=== PATIENT | female | born 1975 | race Caucasian/White ===

== ENCOUNTER 2016-11-10 12:35 | Day surgery (SDC) | payer BC ==
[~2016-11-10] VITALS: Ht 175.3 cm; Wt 151.5 kg
--- NOTE | 2016-11-10 09:39 | MH ---
cc: JACOB SORIANOJulia DATE OF ADMISSION: 11/10/2016 ADMITTING DIAGNOSIS Menorrhagia with anemia, vulvar lesion. HISTORY OF PRESENT ILLNESS A 40-year-old single white female para 0, reported to about 9 years having most no periods except for an occasional one produced by progesterone withdrawal. Over the last 2 years she has been bleeding almost continuously often very heavy. She had an ER visit in [place] in 2015 with extremely low blood count and that required no transfusion. Saw a doctor in [place], on 10/12/16, was given Provera 10 milligrams p.o. b.i.d. which she has taken since that time which has not helped. An ultrasound at [facility] on 09/30/2016 which showed uterus that measured 9.2 cm, endometrium of 20 mm and ovary appeared normal, left could not be seen. She was seen by me for official evaluation on 11/04/2016. PAST MEDICAL HISTORY Her past medical history in 2004 she had a right ACL reconstruction. MEDICATIONS Medications include: 1. Levothyroxine 125 micrograms daily. 2. Lasix 20 milligrams p.o. p.r.n. ALLERGIES None. ILLNESSES History of hypothyroid 2017. TRANSFUSIONS None. OB HISTORY None. SOCIAL HISTORY She works for road [employer], is single, has same sex partner. Alcohol, tobacco and drugs are none. FAMILY HISTORY Noncontributory. PHYSICAL EXAMINATION GENERAL: Shows a morbidly obese white female. VITAL SIGNS: Stable. Height 5'9" inches, weight 347 pounds. HEENT: Exam is normal. CHEST: Her chest is clear. HEART: Regular rate. BREASTS: The breasts are symmetrical. ABDOMEN: The abdomen is obese, benign. PELVIC EXAMINATION: The vulva showed 3 cm growth on the right labia minora. Vagina is normal. Cervix was normal. Uterus feels normal size, shape. Adnexa nonpalpable. ASSESSMENT As above. She is now admitted for hysteroscopy, D&C and a partial molectomy to excise the lesion. Her hemoglobin was 6.9 on 11/05/2016 with microcytic indices. If unstable she will receive transfusion and she is aware of the risks and benefit of transfusion. Also aware of pending pathology, she may require additional surgery. The risks, benefits, complications are explained and accepted. MD KATIE Wolf /8:58 PM /9:36 AM EVELIA
[~2016-11-10 12:35] MED LIST: FURO40TA PO; LEVO125T4 PO; MEDR10TA7 PO; NEOSTIGMINE METHYLSULFATE 10 MG/10 ML VIAL IV PUSH ONE; NORMOSOL R INJ 1,000 ML IV ONE; ONDANSETRON HCL 4 MG/2 ML VIAL IV PUSH ONE; PROPOFOL 200 MG/20 ML AMP IV ONE
[2016-11-10 12:50] VITALS: BP 142/70; PULSE 78; RESP 16; TEMP 97.9; O2SAT 98
[2016-11-10] MEDS ORDERED: LACTATED RINGER'S 1000 ML IV SCH (13:15)
[2016-11-10] MEDS ORDERED: ceFAZolin 2 GM PREMIX 50 ML IV SCH (13:15)
[2016-11-10] MEDS ORDERED: SODIUM CHLORID 0.9% 500 ML IV SCH (13:15)
[2016-11-10] MEDS ORDERED: INSULIN HUMAN REGULAR 1,000 UNITS/10 ML VIAL SQ PRN (13:15)
[2016-11-10] MEDS ORDERED: ACETAMINOPHEN 1000 MG/100 ML VIAL IV SCH (13:15)
[2016-11-10] MEDS ORDERED: METOPROLOL TARTRATE 25 MG TAB PO PRN (13:15)
[2016-11-10 18:19] VITALS: PULSE 71
[2016-11-10 18:20] VITALS: BP 190/85; PULSE 76; RESP 13; TEMP 98.4; O2SAT 99
[2016-11-10 18:35] VITALS: BP 146/76; PULSE 66; RESP 12; TEMP 98.6; O2SAT 99
[2016-11-10] MEDS ORDERED: SODIUM CHLOR 0.9% 250 ML INJ 250 ML ONE (19:07)
[2016-11-10] MEDS ORDERED: BUPIVACAINE/EPINEPHRINE 0.5% 50 ML VIAL INFIL ONE (19:45)
[2016-11-10] MEDS ORDERED: BACITRACIN TOP OINT 15 GM TUBE ONE (20:07)
[2016-11-10 20:20] VITALS: TEMP 98
[2016-11-10] MEDS ORDERED: DO NOT ADM ANY ANTICOAGULANT DRUGS XX PRN (20:30)
[2016-11-10] MEDS ORDERED: fentaNYL CITRATE 250 MCG/5 ML AMP ONE (20:43)
[2016-11-10 21:15] VITALS: BP 148/72; PULSE 65; RESP 16; O2SAT 100
[2016-11-10] MEDS ORDERED: METOCLOPRAMIDE HCL 10 MG/2 ML VIAL IV PRN (21:15)
[2016-11-10] MEDS ORDERED: SODIUM CHLORIDE FLUSH PRN IVF (21:15)
[2016-11-10] MEDS ORDERED: oxyCODONE/ACETAMINOPHEN 5 MG/325 MG TAB PO PRN (21:15)
[2016-11-10] MEDS ORDERED: MUPI2%T TOPICAL (21:30)
[2016-11-10] MEDS ORDERED: PERC5TAB12 PO (21:30)
[2016-11-11] MEDS ORDERED: SODIUM CHLORIDE FLUSH BID IVF SCH (09:00)
--- NOTE | 2016-11-11 14:07 | EKG ---
Date Performed: 11/10/2016 Time Performed: 13:10:43 PTAGE: 40 years EKG: Sinus rhythm NORMAL ECG NO PREVIOUS TRACING DOCTOR: Geovanni Harper Interpretating Date/Time 11/11/2016 13:59:05
--- NOTE | 2016-11-13 13:29 | MP ---
cc: JACOB SORIANO M.D. DATE OF SURGERY: 11/10/2016. 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 OPERATIVE PROCEDURE PERFORMED: Hysteroscopy, D&C and partial vulvectomy. SURGEON: Jacob Soriano MD. ANESTHESIA General ET and Marcaine plus epinephrine about 20 mL total. ESTIMATED BLOOD LOSS FOR THE PROCEDURE: About 50 cc. FLUIDS: 0.5 liter crystalloid. BLOOD REPLACEMENT: Two units pre- and postop total. DESCRIPTION OF THE PROCEDURE IN DETAIL / OBJECTIVE FINDINGS: Following the induction of adequate general endotracheal anesthesia, the patient was prepped and draped supine on the operating table in the dorsal lithotomy position in the usual sterile fashion with the bladder being drained via in and out catheterization. The vulva was notable for a 3 cm exophytic lesion on the left labia minora and a 1 cm one on the right labia minora. A heavy weighted speculum was placed in the posterior fornix of the vagina. The anterior lip of the cervix with a single-tooth tenaculum and the cervix and uterus sounded to 9 cm. The cervix was then dilated to a #18 Hanks dilator. The hysteroscope was passed with normal endocervix with very thickened endometrium. The scope was withdrawn. Endocervical Curettings were obtained with a small serrated curette, copious endometrium with a medium sharp curette. The vaginal instruments were removed. The left labial lesion was infiltrated with about 10 mL of Marcaine 0.5% with epinephrine and then an elliptical incision was made to excise the mass. The wound was cauterized with Bovie for good hemostasis and the wound edges reapproximated with 3-0 Vicryl interrupted. On the right side injection was done with 5 mL of Marcaine plus epinephrine and the lesion excised with a 1.5 cm ellipse and closed with 3-0 Vicryl after good hemostasis with the Bovie. Re-inspection of the cervix revealed no bleeding. Bacitracin was applied. The patient was taken out of the stirrups. She was awakened and taken to the recovery room in good condition. MD NIGEL Wolf/LEYLA /8:08 PM /1:16 PM
[2017-01-05] MEDS ORDERED: FERR65TA PO (11:31)
== END 2016-11-10 21:50 | disposition home or self-care (01) ==
LOC: HSDC 12:35
PROVIDERS: ATTEND Obstetrics & Gynecology
DX: N92.0 Excessive and frequent menstruation with regular cycle (principal); N85.01 Benign endometrial hyperplasia; N84.3 Polyp of vulva; D50.0 Iron deficiency anemia secondary to blood loss (chronic); I10 Essential (primary) hypertension
CPT/HCPCS: 00906; 36430; 56620; 58558; 86850; 86900; 86901; 86920; 88304; 88305; 93005; J0131; J0690; J2405; J2710; J3010; J7050; J7120; P9016

== ENCOUNTER 2017-01-06 05:28 | Observation (INO) | payer BC ==
[~2017-01-06] VITALS: Ht 175.3 cm; Wt 153.7 kg
[~2017-01-06 05:28] MED LIST changes: +FERR65TA PO; -NEOSTIGMINE METHYLSULFATE 10 MG/10 ML VIAL IV PUSH ONE; -NORMOSOL R INJ 1,000 ML IV ONE; -ONDANSETRON HCL 4 MG/2 ML VIAL IV PUSH ONE; -PROPOFOL 200 MG/20 ML AMP IV ONE
[2017-01-06] MEDS ORDERED: POVIDONE IODINE 5% (ANTISEPSIS KIT) 4 APPLICATIONS EACH NARE PRN (06:00)
[2017-01-06] MEDS ORDERED: METOPROLOL TARTRATE 25 MG TAB PO PRN (06:00)
[2017-01-06] MEDS ORDERED: ceFAZolin 2 GM PREMIX 50 ML IV SCH (06:00)
[2017-01-06] MEDS ORDERED: CHLORHEXIDINE GLUCONATE 2 % 1 PACK (2 CLOTHS) TOPICAL PRN (06:00)
[2017-01-06] MEDS ORDERED: INSULIN HUMAN REGULAR 1,000 UNITS/10 ML VIAL SQ PRN (06:00)
[2017-01-06] MEDS ORDERED: SODIUM CHLORID 0.9% 500 ML IV PRN (06:00)
[2017-01-06] MEDS ORDERED: LACTATED RINGER'S 1000 ML IV PRN (06:00)
[2017-01-06] MEDS ORDERED: HEPARIN SODIUM - SQ 10,000 UNITS/ML VIAL SQ SCH (06:00)
[2017-01-06 06:22] VITALS: BP 161/74; PULSE 73; RESP 18; TEMP 97.9; O2SAT 96
[2017-01-06] MEDS ORDERED: LIDOCAINE 1%/EPINEPHrine 1:100,000 SOLN 20 ML VIAL ONE (07:12)
[2017-01-06] MEDS ORDERED: fentaNYL CITRATE 250 MCG/5 ML AMP ONE (07:32)
[2017-01-06] MEDS ORDERED: DEXAMETHASONE SOD PHOS 20 MG/5 ML VIAL ONE (07:32)
[2017-01-06] MEDS ORDERED: FAMOTIDINE 20 MG/2 ML VIAL ONE (07:33)
[2017-01-06] MEDS ORDERED: ACETAMINOPHEN 1000 MG/100 ML VIAL IV ONE (08:04)
[2017-01-06] MEDS ORDERED: HYDROmorphone HCL PF 2 MG/ML VIAL ONE (08:04)
[2017-01-06] MEDS ORDERED: METHYLENE BLUE 10 MG/ML VIAL OTHER ONE (10:24)
[2017-01-06] MEDS ORDERED: ceFAZolin INJ 1,000 MG VIAL IV ONE (10:38)
[2017-01-06] MEDS ORDERED: SUGAMMADEX SODIUM 200 MG/2 ML VIAL IV PUSH ONE ×2 (11:06)
[2017-01-06] MEDS ORDERED: SODIUM CHLORIDE 0.9% FLUSH 10 ML FLUSH IV FLUSH PRN (11:30)
[2017-01-06] MEDS ORDERED: oxyCODONE/ACETAMINOPHEN 5 MG/325 MG TAB PO PRN ×2 (11:30)
[2017-01-06] MEDS ORDERED: ONDANSETRON HCL 4 MG/2 ML VIAL IVP PRN (11:30)
[2017-01-06] MEDS ORDERED: LORazepam 0.5 MG TAB PO PRN (11:30)
[2017-01-06] MEDS ORDERED: HYDROmorphone HCL PF 1 MG/ML VIAL IVP PRN (11:30)
[2017-01-06] MEDS ORDERED: diphenhydrAMINE HCL 25 MG CAP PO PRN (11:30)
[2017-01-06] MEDS ORDERED: PHENYLEPH/NS 1000 MCG/10 ML SYR IV ONE (12:00)
[2017-01-06] MEDS ORDERED: ePHEDrine/NS 25 MG/5 ML SYR IV ONE (12:00)
[2017-01-06] MEDS ORDERED: LACTATED RINGER'S 1000 ML INJ 1,000 ML IV ONE (12:00)
[2017-01-06] MEDS ORDERED: ONDANSETRON HCL 4 MG/2 ML VIAL IV PUSH ONE (12:00)
[2017-01-06] MEDS ORDERED: PROPOFOL 200 MG/20 ML AMP IV ONE (12:00)
[2017-01-06] MEDS ORDERED: DO NOT ADM ANY ANTICOAGULANT DRUGS PRN (12:00)
[2017-01-06] MEDS ORDERED: NEOSTIGMINE 3 MG/3 ML SYR IV ONE (12:00)
[2017-01-06] MEDS ORDERED: SODIUM CHLOR 0.9% 1000 ML INJ 1,000 ML IV ONE (12:00)
[2017-01-06] MEDS: KETOROLAC TROMETHAMINE 30 MG/ML (IVP) VIAL IVP SCH ×3 (12:20→23:35)
[2017-01-06] MEDS: D5-1/2 NS + KCL 20 MEQ INJ 1,000 ML IV SCH ×2 (12:22→23:35)
[2017-01-06 13:15] VITALS: BP 156/77; PULSE 78; RESP 21; TEMP 96.6; O2SAT 92
[2017-01-06 16:13] VITALS: BP 152/77; PULSE 79; RESP 20; TEMP 97.8; O2SAT 95
--- NOTE | 2017-01-06 16:42 | PD.ONC.PN ---
Subjective Subjective Remarks post op note pt awake and alert no complaints of pain or n/v states that both of her hands feel a little numb Objective Data Date Time Temp Pulse Resp B/P Pulse Ox O2 Delivery O2 Flow Rate FiO2 01/06/17 16:13 97.8 79 20 152/77 95 01/06/17 13:15 96.6 78 21 156/77 92 01/06/17 12:45 76 16 175/83 95 Nasal Cannula 3 01/06/17 12:30 79 16 167/93 94 Nasal Cannula 3 01/06/17 12:15 77 16 166/96 94 Nasal Cannula 3 01/06/17 12:00 79 16 159/87 96 Nasal Cannula 4 01/06/17 11:46 98.4 80 16 159/85 100 Simple Mask 10 01/06/17 06:22 97.9 73 18 161/74 96 01/06/17 01/06/17 01/06/17 07:00 15:00 23:00 Intake Total 2250 ml Output Total 1150 ml Balance 1100 ml Laboratory Results Laboratory Tests Test 01/06/17 06:10 Blood Type A POSITIVE Antibody Screen NEGATIVE Administered Medications Medications (Trade) Dose Ordered Sig/Nayan Route PRN Reason Start Time Stop Time Status Last Admin Dose Admin Potassium Chloride/Dextrose/ Sod Cl (D5-1/2 NS + KCl 20 Meq Inj) 1,000 ml @ 100 mls/hr Q10H IV 01/06/17 13:00 01/06/17 12:22 Ketorolac Tromethamine (Toradol Inj) 30 mg Q6H IVP 01/06/17 11:30 01/07/17 05:31 01/06/17 12:20 Objective Remarks GENERAL: Well-nourished, well-developed patient. SKIN: Warm and dry. HEAD: Normocephalic. EYES: No scleral icterus. No injection or drainage. CARDIOVASCULAR: Regular rate and rhythm without murmurs. RESPIRATORY: Breath sounds equal bilaterally. No accessory muscle use. GASTROINTESTINAL: Abdomen soft, non-tender, nondistended. SS are c/d/i EXTREMITIES: TEDs and SCDs MUSCULOSKELETAL: Adequate muscle tone. NEUROLOGICAL: No obvious focal deficit. Awake, alert, and oriented x3. bilateral UE strength 5/5, shoulder shrug 5/5 equal PSYCHIATRIC: Appropriate mood and affect; insight and judgment normal. Assessment/Plan Problem List: (1) Post-operative state Status: Acute Plan: s/p RA lap hyst with bso ADAT OOB to chair IS to bedside and instructions given for use pain meds per EMR anticipate d/c home in next 24hours Attending Statement Dr. Garcia is in agreement with this plan of care. Inna Villa January 06, 2017 16:42
[2017-01-06 20:00] VITALS: BP 144/67; PULSE 78; RESP 18; TEMP 99; O2SAT 96
[2017-01-06 21:02] LABS: MEAN CORPUSCULAR HGB CONC 29.1 % (32.0-36.0)
[2017-01-06] MEDS: SODIUM CHLORIDE 0.9% FLUSH 10 ML FLUSH IV FLUSH SCH (22:30)
[2017-01-07] VITALS: BP 152/72; PULSE 65; RESP 18; TEMP 98.2; O2SAT 98
[2017-01-07 04:00] VITALS: BP 154/75; PULSE 93; RESP 17; TEMP 97.1; O2SAT 95
[2017-01-07] MEDS: KETOROLAC TROMETHAMINE 30 MG/ML (IVP) VIAL IVP SCH (05:32)
[2017-01-07] MEDS ORDERED: LEVOTHYROXINE SODIUM 125 MCG TAB PO SCH (06:00)
[2017-01-07] MEDS ORDERED: OXYC1TAB63 PO (07:14)
[2017-01-07 07:31] LABS: AUTOMATED NEUTROPHIL # 8.2 TH/MM3 (1.8-7.7); BASOPHIL % 0.4 % (0.0-2.0); EOSINOPHIL % 0.3 % (0.0-4.0); HEMATOCRIT 27.7 % (35.0-46.0); LYMPH % 14.7 % (9.0-44.0); LYMPHOCYTE # 1.5 TH/MM3 (1.0-4.8); MEAN CELL VOLUME 61.3 FL (80.0-100.0); MEAN CORPUSCULAR HEMOGLOBIN 17.8 PG (27.0-34.0); MONO % 4.3 % (0.0-8.0); NEUT % 80.3 % (16.0-70.0); PLATELET COUNT 245 TH/MM3 (150-450); RED BLOOD COUNT 4.52 MIL/MM3 (4.00-5.30); RED CELL DISTRIBUTION WIDTH 23.5 % (11.6-17.2); WHITE BLOOD COUNT 10.2 TH/MM3 (4.0-11.0)
[2017-01-07 07:33] LABS: HEMO FLAGS AUTO DIFF
[2017-01-07] MEDS: SODIUM CHLORIDE 0.9% FLUSH 10 ML FLUSH IV FLUSH SCH (07:54)
[2017-01-07 08:07] LABS: BICARBONATE 28.2 MEQ/L (21.0-32.0); POTASSIUM 3.4 MEQ/L (3.5-5.1)
[2017-01-07 08:20] LABS: SCAN/DIFF AUTO DIFF CONFIRMED; TEARDROP RBCS 1+ (NORMAL)
[2017-01-07 08:36] VITALS: BP 160/75; PULSE 70; RESP 21; TEMP 97.7; O2SAT 97
[2017-01-07] MEDS ORDERED: FUROSEMIDE 40 MG TAB PO SCH (09:00)
[2017-01-07 12:00] VITALS: BP 169/79; PULSE 73; RESP 20; TEMP 98; O2SAT 97
--- NOTE | 2017-01-07 19:59 | MP ---
cc: JACOB SORIANO EJAZ MD MOLPUS,KARYN Prince MD DATE OF SURGERY: 01/07/2017. PREOPERATIVE DIAGNOSIS: 1. Irregular bleeding. 2. Grade 1 endometrial adenocarcinoma. POSTOPERATIVE DIAGNOSIS: 1. Irregular bleeding. 2. Grade 1 endometrial adenocarcinoma. OPERATIVE PROCEDURE PERFORMED: Robotic-assisted laparoscopic hysterectomy, bilateral salpingo-oophorectomy, bilateral pelvic lymph node biopsy. SURGEON: Karyn Garcia MD. 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 ANESTHESIA: General endotracheal anesthesia. ESTIMATED BLOOD LOSS: 150 mL. IV FLUIDS: 4000 mL. URINE OUTPUT: 200 mL HISTORY: 41-year-old female with irregular bleeding, she estimates on and off for a couple of years. Imaging showed thickened endometrial stripe. Endometrial biopsy showed a grade 1 endometrial adenocarcinoma. She has been counseled regarding these findings. CT scan showed no overt evidence of metastatic disease. There were prominent adrenal glands bilaterally. She had an MRI that suggested one is an adenoma and the other is cystic. She is seen again the preop holding area where she is again counseled regarding the findings. She is in favor of complete hysterectomy and bilateral salpingo-oophorectomy. She is actually thought to have already gone through menopause as she went for number of years with no periods. She understands the reproductive and menopausal ramifications of hysterectomy. She also understands the situations where staging biopsies may be warranted. As per our prior discussion, effort would be to minimize morbidity FINDINGS: The uterine cavity sounded to 9 cm. The ovaries were prominent bilaterally, possibly polycystic ovarian changes. There were prominent lymph nodes in the pelvis bilaterally. There were no peritoneal implants. The liver / diaphragm edges were smooth. The omentum grossly appeared normal. Large and small bowel and adjacent mesentery appeared normal. No overt detectable enlarged para-aortic lymph nodes. The uterus once removed showed a tumor to be 3.5 cm. It appeared to be exophytic and polypoid into the endometrial cavity. There was no obvious invasion into the myometrium. The tumor did extend into the lower uterine segment but did not appear to extend into the cervix. Frozen section on an ovary did not show any evidence of malignancy. STATEMENT OF COMPLEXITY: The complexity of this case was increased throughout due to body habitus with a weight of 153 kg. Modifier should be applied accordingly. DESCRIPTION OF THE PROCEDURE IN DETAIL: The patient was taken to the operating room and placed in dorsal lithotomy position after general endotracheal anesthesia was administered. A time-out was undertaken. The patient was identified by sight recognition and hospital ID bracelet and the proposed procedure was reviewed and confirmed. She was carefully positioned in padded Ten stirrups. Her arms were padded and secured to the sides. She was further secured to the operating table with egg crate padding and tape in a cross chest over the shoulder fashion. All sites were noted be properly aligned with no malalignments or pressure points. She was prepped in sterile fashion and draped below the waist, and placed in high lithotomy position. The cervix was grasped The uterine cavity was sounded. A large V-Care manipulator was inserted and secured in the usual fashion. Acevedo catheter was placed in the bladder. She was returned to low lithotomy position. Change of sterile gloves was undertaken. We completed draping in anticipation of laparoscopy. We confirmed that an orogastric tube was in the stomach on suction with manual elevation of the abdominal wall. A 5 mm cannula introduced under laparoscopic visualization into the left upper quadrant and an atraumatic entry was confirmed. Carbon dioxide gas was insufflated. A 12 mm cannula placed in the midline above the umbilicus, 8 mm cannula placed in the right upper quadrant and left lateral quadrant. Peritoneal washings were obtained for cytology. The anatomy was surveyed with findings as described above. She was placed in Trendelenburg position. We were notified by anesthesia that they are having some difficulty measuring her respiratory parameters. Oxygen saturation was reduced so we desufflated the peritoneal cavity and returned her to supine position while anesthesia checked the airway position patency relaxation and other steps to evaluate and to resolve any issues, which were resolved. We re-insufflated her but kept the pressure at 12 mmHg. We gradually returned to Trendelenburg in increments ensuring that she was tolerating the positioning from a hemodynamic standpoint and other increments of Trendelenburg with a reassessment until we got into modified Trendelenburg position, and she was tolerating this satisfactorily. Anesthesia felt it was safe to proceed, and we felt we could accomplish the surgical objectives with this positioning. The small bowel was folded back on its mesenteric root. Three Ray-Rizwan sponges were placed around the root of the small bowel mesentery. The robotic system was brought into the operative field and attached in the usual fashion. Monopolar scissors, fenestrated bipolar forceps and Prograsp manipulators were placed in arms one, two and three, respectively and took my place at the surgeon's console. The right round ligament was isolated, cauterized and transected. The anterior and posterior leafs of the broad ligament were opened. The right ureter was identified. The right infundibulopelvic ligament was isolated to the level of the pelvic brim where it was cauterized and transected. The posterior peritoneum was opened along the right side of uterus and cervix and the right vesicouterine peritoneum was dissected off the lower uterine segment and cervix. The right uterine vessels were skeletonized and cauterized. Attention was directed toward the left side where the left round ligament was isolated, cauterized and transected. The anterior and posterior leafs of the broad ligament were opened. The left ureter was identified. The left infundibulopelvic ligament was isolated. The intervening peritoneum was opened. The infundibulopelvic ligament was isolated to the level of the pelvic brim where it was cauterized and transected. Posterior peritoneum opened along the left side of uterus and cervix. The left vesicouterine peritoneum was dissected off the lower uterine segment and cervix. The left uterine vessels were skeletonized, cauterized and transected as were the cardinal, paracervical and uterosacral ligaments. Attention was redirected toward the right side where the right uterine vessels were now transected. The cardinal, paracervical and uterosacral ligaments were isolated, cauterized and transected in a stepwise fashion. Colpotomy was performed the cervix from the upper vagina with a 360 degree incision and the specimen was withdrawn transvaginally which included uterus, cervix, bilateral tubes and ovaries. The Pneumooccluder balloon was placed in the vagina to maintain pneumoperitoneum. Instruments one and three were exchanged for needle drivers as a 0 Vicryl suture was introduced. The vaginal cuff was closed starting at the left corner full-thickness closure including the posterior peritoneum and edge of the uterosacral ligament tied via instrument tie. The closure was held on counter traction as a running continuous closure was carried across the vaginal cuff to the contralateral corner where it was similarly secured, fixed and tied. The needle was cut and removed. Lymph nodes were inspected. There were some prominent lymph nodes quite possibly reactive as she has a chronic lower extremity swelling. The pathology from the uterus showed a noninvasive tumor as described above. Nevertheless, to evaluate the presence or absence of metastatic disease, a customer retention representative enlarged lymph node was taken each from the right and left pelvis. First on the right pelvis along the lateral to the external iliac artery, bipolar cautery and sharp dissection was used to remove an approximately 2 cm lymph node circumferentially. Small bleeders were rendered hemostatic with bipolar cautery and the lymph node was placed on the Ray-Rizwan in the right pericolic gutter. Attention was directed toward the left side. There was a prominent lymph node directly overlying the external iliac vein and artery. There was another prominent lymph node just lateral to the iliac artery and the lateral prominent lymph node was removed. Bipolar cautery and sharp dissection was used circumferentially to remove this lymph node and it was placed in the right pericolic gutter as well. The dissection bed was rendered hemostatic with bipolar cautery. The pelvis was sterilely irrigated. Small bleeders were rendered hemostatic with cautery. The bladder integrity was confirmed by filling the bladder with saline dye with methylene blue. There were no areas of thinning and certainly no defects in the bladder. There was a good margin between the bladder edge and the vaginal cuff suture line. Good peristalsis of ureters bilaterally, and to ensure hemostasis, hemostatic Sanjeev was placed across the vaginal cuff, the pelvic dissection area and lymph node biopsy sites. It was felt that all reasonable surgical objectives had been completed in this individual as per our preoperative discussion and plan. The instruments were therefore removed, the robotic system was disengaged from the operative field and I reentered bedside under sterile condition. A 12 mm EndoCatch bag was used to capture the lymph nodes which were brought out through the 12-mm cannula and then each of the three Ray-Rizwan sponges that had been placed in the peritoneal cavity were grasped and removed through the 12-mm cannula. Each was inspected and noted to be removed in its entirety. Visual inspection confirmed there were no remaining foreign objects in the peritoneal cavity. Good hemostasis. Preliminary counts were correct, and attention was directed toward closing. The 12 mm fascial defect was closed with a 0 Vicryl sutures interrupted using a needle pass apparatus under laparoscopic visualization. They were tied securely which rendered the fascia completely airtight and hemostatic. The remaining cannulas were withdrawn. Carbon dioxide gas was removed from the peritoneal cavity. 3-0 Vicryl subcutaneous and 3-0 Vicryl subcuticular were used to close these incisions with Steri-Strips placed over them. She was returned to dorsal lithotomy position. Exam confirmed the vaginal cuff was well supported and hemostatic except for just a small superficial irritation and ooze in the anterior vaginal mucosa. Additional Sanjeev hemostatic agent was placed and there was complete hemostasis. There were no remaining foreign objects in the vagina and final counts were correct. She was returned to dorsal supine position and was pending reversal of anesthesia when I left the operating room to precede her to the post-anesthesia care unit. MD TALI Amos/LEYLA /12:04 PM /7:31 PM
--- NOTE | 2017-01-10 08:19 | MD ---
cc: JACOB SORIANO EJAZ MD MOLPUS,KARYN Prince MD ADMISSION DATE: 01/06/2017 DISCHARGE DATE: 01/07/2017 PROCEDURE 01/06/2017 Robotic-assisted laparoscopic hysterectomy, bilateral salpingo-oophorectomy, bilateral pelvic lymph node biopsies. DIAGNOSIS Endometrial cancer. HISTORY This is a 41-year-old female with irregular bleeding, thickened endometrial stripe. Biopsy showed a grade 1 endometrial cancer. She was counseled regarding these findings and presented for surgical management. HOSPITAL COURSE She did well during the early postoperative period. Ins and outs 4442/2050. Labs pending at the time of this dictation. She has been afebrile, pulse 65-93, respirations 17-21, blood pressure 144-156/67-77, O2 saturations greater than or equal to 95%. PHYSICAL EXAMINATION GENERAL: Alert and oriented x3, in no acute distress. LUNGS: Clear. Mild rales at the bases. CARDIOVASCULAR: Regular rate and rhythm. ABDOMEN: Soft. Incisions clean and dry. ZYGLO TECHNICIAN: No bleeding. EXTREMITIES: Nontender. NEUROLOGIC: Improvement in the sense of some numbness and irritation to the fingers and wrists with full range of motion. Neurovascular intact. ASSESSMENT Post-op day #1, tolerating oral intake, hemodynamically stable. Acevedo catheter removed pending voiding. Out of bed to chair. Findings, preliminary pathology and steps taken at surgery discussed. Activities and restrictions reviewed. Questions were answered. She expressed good understanding and agreed. PLAN Anticipate discharge to home today. Follow-up in two weeks. She is to resume prior medications; however, probably okay to discontinue the iron supplement as well as the progesterone, now that she has had surgical intervention for her bleeding. Prescription for Percocet provided. Our office number is again provided. She is to contact our office should she have any questions or problems between now and the time of scheduled follow-up. MD TALI Amos/LINDSAY /7:20 AM /7:59 AM
== END 2017-01-07 14:47 | disposition home or self-care (01) ==
LOC: HSDC 05:28 → HSDI 11:31 → HOCB 13:12
PROVIDERS: ADMIT Obstetrics & Gynecology Gynecologic Oncology; ATTEND Obstetrics & Gynecology Gynecologic Oncology
DX: C54.1 Malignant neoplasm of endometrium (principal); N80.0 Endometriosis of uterus; N83.01 Follicular cyst of right ovary; N83.8 Other noninflammatory disorders of ovary, fallopian tube and broad ligament; R59.0 Localized enlarged lymph nodes; I10 Essential (primary) hypertension; E66.9 Obesity, unspecified; E03.9 Hypothyroidism, unspecified; Z68.43 Body mass index [BMI] 50.0-59.9, adult
CPT/HCPCS: 38570; 58573; 80048; 85025; 86850; 86900; 86901; 88112; 88305; 88307; 88331; 94150; G0378; J0131; J0690; J1100; J1170; J1644; J1885; J2370; J2405; J2710; J3010; J3480; J7030; J7120